=== PATIENT | female | born 1965 | race Caucasian/White ===

== ENCOUNTER 2021-03-19 15:11 | Emergency (ER) | payer OTHER ==
[2021-03-19] MEDS ORDERED: traMADol 50 MG TAB PO STA (15:51)
[2021-03-19] MEDS ORDERED: SODIUM CHLORIDE 0.9% 1,000 ML IV STA ×2 (15:51→17:15)
--- NOTE | 2021-03-19 15:53 | ED ---
General Adult HPI - General Chief complaint: Fever Stated complaint: Fall Time Seen by Provider: 03/19/21 15:14 Source: patient, EMS Mode of arrival: EMS Limitations: no limitations - History of Present Illness Initial comments: 55-year-old female presents to the emergency department with a chief complaint of a fall. Patient reports she has developed a fever, intermittent over the last 5 days. She states she has been able to break it with [id number] antipyretics. During this period, she reports increased weakness with generalized myalgias. She reports over the last several days her knees are "buckling". States today she was attempting to walk to the store when a similar incident occurred. She denies any head injuries, blood thinners, chest pain or shortness of breath. Denies any vaginal urinary symptoms. Denies abdominal or back pain. - Related Data Home Medications Medication Instructions Recorded Confirmed Metoclopramide HCl [Reglan] 5 mg PO Q6H PRN 09/12/15 09/12/15 Omeprazole [PriLOSEC] 20 mg PO AC-BRKFST 09/12/15 09/12/15 buPROPion HCL [Wellbutrin] 150 mg PO DAILY 09/12/15 09/12/15 Previous Rx's Medication Instructions Recorded Acetaminophen-Codeine 300-30mg 1 tab PO Q4H PRN #20 tablet 09/12/15 [Tylenol w/codeine #3] Cephalexin [Keflex] 500 mg PO TID #28 cap 03/19/21 Allergies Allergy/AdvReac Type Severity Reaction Status Date / Time Penicillins Allergy Unknown Verified 03/19/21 15:20 Review of Systems ROS Statement: Those systems with pertinent positive or pertinent negative responses have been documented in the HPI. ROS Other: All systems not noted in ROS Statement are negative. Past Medical History Past Medical History: Asthma History of Any Multi-Drug Resistant Organisms: None Reported Past Surgical History: No Surgical Hx Reported Additional Past Surgical History / Comment(s): gastric bypass, eyes Past Psychological History: Depression Smoking Status: Never smoker Past Alcohol Use History: None Reported Past Drug Use History: None Reported General Exam Limitations: no limitations General appearance: alert, in no apparent distress, obese Head exam: Present: atraumatic, normocephalic, normal inspection Eye exam: Present: normal appearance, PERRL, EOMI Pupils: Present: normal accommodation ENT exam: Present: normal exam, normal oropharynx, mucous membranes dry, TM's normal bilaterally, normal external ear exam Neck exam: Present: normal inspection, full ROM. Absent: tenderness, lymphadenopathy Respiratory exam: Present: normal lung sounds bilaterally. Absent: respiratory distress, wheezes, rales, rhonchi, stridor, chest wall tenderness Cardiovascular Exam: Present: regular rate, normal rhythm, normal heart sounds. Absent: systolic murmur GI/Abdominal exam: Present: soft. Absent: distended, tenderness, guarding, josemanuel ound, rigid Extremities exam: Present: normal inspection, full ROM, tenderness (Bilateral knee tenderness), normal capillary refill, other (Palpable DP and PT bilaterally). Absent: pedal edema, joint swelling, calf tenderness Back exam: Present: normal inspection, full ROM. Absent: tenderness, CVA tenderness (R), CVA tenderness (L), muscle spasm, paraspinal tenderness, vertebral tenderness Neurological exam: Present: alert, oriented X3, normal gait Psychiatric exam: Present: normal affect, normal mood Skin exam: Present: warm, dry, intact, normal color Course Vital Signs 03/19/21 03/19/21 03/19/21 15:15 16:31 18:17 Temperature 99.0 F 97.9 F Pulse Rate 107 H 98 103 H Respiratory 18 18 20 Rate Blood Pressure 127/80 95/81 121/76 O2 Sat by Pulse 99 97 96 Oximetry EKG Findings - EKG Comments: EKG Findings:: Sinus rhythm with QT prolongation, nonspecific T waves in V4 through V6. Ventricular rate 96, IL 132, QRS 90, QTC 540. Medical Decision Making - Medical Decision Making 55-year-old female presents to the emergency department with a chief complaint of a fall. Physical examination is only remarkable for clinical signs of dehydration with dry mucous members. CBC and a markable. CMP reveals hypokalemia with a potassium of 3.0. Patient was given Cassidy Dur. Lactic acid 2.3, likely secondary to dehydration. UA shows elevated leukocyte esterase and white blood cells. Urine culture is pending. We'll start the patient 1 g of Rocephin and will discharge with Keflex. Patient was given 2 L of IV bolus fluids. On reevaluation, patient reports improvement in symptoms and feels comfortable going home. Strict return parameters were thoroughly discussed with patient is an attending agreeable. Case discussed with Dr. Wayne. - Lab Data Result diagrams: 03/19/21 16:01 03/19/21 16:01 Lab Results 03/19/21 03/19/21 03/19/21 Range/Units 16:01 16:01 16:01 WBC 5.9 (3.8-10.6) k/uL RBC 4.12 (3.80-5.40) m/uL Hgb 11.3 L (11.4-16.0) gm/dL Hct 35.8 (34.0-46.0) % MCV 86.9 (80.0-100.0) fL MCH 27.5 (25.0-35.0) pg MCHC 31.7 (31.0-37.0) g/dL RDW 16.4 H (11.5-15.5) % Plt Count 154 (150-450) k/uL MPV 8.2 Neutrophils % (Manual) 62 % Band Neuts % (Manual) 2 % Lymphocytes % (Manual) 19 % Monocytes % (Manual) 17 % Neutrophils # (Manual) 3.70 (1.3-7.7) k/uL Lymphocytes # (Manual) 1.12 (1.0-4.8) k/uL Monocytes # (Manual) 1.00 (0-1.0) k/uL Nucleated RBCs 0 (0-0) /100 WBC Manual Slide Review Performed Hypochromasia Moderate Anisocytosis Slight Sodium 135 L (137-145) mmol/L Potassium 3.0 L (3.5-5.1) mmol/L Chloride 102 (98-107) mmol/L Carbon Dioxide 22 (22-30) mmol/L Anion Gap 11 mmol/L BUN 13 (7-17) mg/dL Creatinine 0.80 (0.52-1.04) mg/dL Est GFR (CKD-EPI)AfAm >90 (>60 ml/min/1.73 sqM) Est GFR (CKD-EPI)NonAf 84 (>60 ml/min/1.73 sqM) Glucose 90 (74-99) mg/dL Lactic Ac Sepsis Rflx Plasma Lactic Acid David 2.3 H* (0.7-2.0) mmol/L Calcium 8.5 (8.4-10.2) mg/dL Total Bilirubin 0.3 (0.2-1.3) mg/dL AST 65 H (14-36) U/L ALT 32 (4-34) U/L Alkaline Phosphatase 155 H (38-126) U/L Total Protein 5.8 L (6.3-8.2) g/dL Albumin 2.9 L (3.5-5.0) g/dL Urine Color Urine Appearance (Clear) Urine pH (5.0-8.0) Ur Specific [place] (1.001-1.035) Urine Protein (Negative) Urine Glucose (UA) (Negative) Urine Ketones (Negative) Urine Blood (Negative) Urine Nitrite (Negative) Urine Bilirubin (Negative) Urine Urobilinogen (<2.0) mg/dL Ur Leukocyte Esterase (Negative) Urine RBC (0-5) /hpf Urine WBC (0-5) /hpf Ur Squamous Epith Cells (0-4) /hpf Hyaline Casts (0-2) /lpf Granular Casts (0) /lpf Urine Mucus (None) /hpf Urine HCG, Qual (Not Detectd) 03/19/21 03/19/21 03/19/21 Range/Units 16:25 17:25 17:25 WBC (3.8-10.6) k/uL RBC (3.80-5.40) m/uL Hgb (11.4-16.0) gm/dL Hct (34.0-46.0) % MCV (80.0-100.0) fL MCH (25.0-35.0) pg MCHC (31.0-37.0) g/dL RDW (11.5-15.5) % Plt Count (150-450) k/uL MPV Neutrophils % (Manual) % Band Neuts % (Manual) % Lymphocytes % (Manual) % Monocytes % (Manual) % Neutrophils # (Manual) (1.3-7.7) k/uL Lymphocytes # (Manual) (1.0-4.8) k/uL Monocytes # (Manual) (0-1.0) k/uL Nucleated RBCs (0-0) /100 WBC Manual Slide Review Hypochromasia Anisocytosis Sodium (137-145) mmol/L Potassium (3.5-5.1) mmol/L Chloride (98-107) mmol/L Carbon Dioxide (22-30) mmol/L Anion Gap mmol/L BUN (7-17) mg/dL Creatinine (0.52-1.04) mg/dL Est GFR (CKD-EPI)AfAm (>60 ml/min/1.73 sqM) Est GFR (CKD-EPI)NonAf (>60 ml/min/1.73 sqM) Glucose (74-99) mg/dL Lactic Ac Sepsis Rflx Y Plasma Lactic Acid David (0.7-2.0) mmol/L Calcium (8.4-10.2) mg/dL Total Bilirubin (0.2-1.3) mg/dL AST (14-36) U/L ALT (4-34) U/L Alkaline Phosphatase (38-126) U/L Total Protein (6.3-8.2) g/dL Albumin (3.5-5.0) g/dL Urine Color Yellow Urine Appearance Cloudy H (Clear) Urine pH 6.0 (5.0-8.0) Ur Specific [place] 1.016 (1.001-1.035) Urine Protein 1+ H (Negative) Urine Glucose (UA) Negative (Negative) Urine Ketones Negative (Negative) Urine Blood Small H (Negative) Urine Nitrite Negative (Negative) Urine Bilirubin Negative (Negative) Urine Urobilinogen <2.0 (<2.0) mg/dL Ur Leukocyte Esterase Moderate H (Negative) Urine RBC 12 H (0-5) /hpf Urine WBC 43 H (0-5) /hpf Ur Squamous Epith Cells <1 (0-4) /hpf Hyaline Casts 60 H (0-2) /lpf Granular Casts 1 (0) /lpf Urine Mucus Rare H (None) /hpf Urine HCG, Qual Not Detected (Not Detectd) Disposition Clinical Impression: Urinary tract infection Disposition: HOME SELF-CARE Condition: Stable Instructions (If sedation given, give patient instructions): Urinary Tract Infection in Women (DC) Additional Instructions: Take prescribed medication as directed. Follow up with her primary care physician. Return to emergency department if symptoms worsen. Prescriptions: Cephalexin [Keflex] 500 mg PO TID #28 cap Is patient prescribed a controlled substance at d/c from ED?: No Referrals: Nonstaff,Physician [Primary Care Provider] - 1-2 days Time of Disposition: 18:14
[2021-03-19 16:15] LABS: Anisocytosis Slight; HCT 35.8 % (34.0-46.0); HGB 11.3 gm/dL (11.4-16.0); Hypochromasia Moderate; MCH 27.5 pg (25.0-35.0); MCHC 31.7 g/dL (31.0-37.0); MCV 86.9 fL (80.0-100.0); Mean Platelet Volume 8.2; Platelet Count 154 k/uL (150-450); RBC 4.12 m/uL (3.80-5.40); RDW 16.4 % (11.5-15.5); WBC 5.9 k/uL (3.8-10.6)
--- NOTE | 2021-03-19 16:21 | XR ---
EXAMINATION TYPE: XR chest 2V DATE OF EXAM: 03/19/2021 COMPARISON: NONE HISTORY: Shortness of breath TECHNIQUE: Frontal and lateral views of the chest are obtained. FINDINGS: Scattered senescent parenchymal changes noted. Hyperinflation compatible with COPD. No evidence for infiltrate. No evidence for atelectasis. Cardiomegaly. Mediastinal structures are stable and grossly unremarkable. No evidence for hilar prominence. Degenerative changes dorsal spine. IMPRESSION: 1. No evidence for acute pulmonary disease.
--- NOTE | 2021-03-19 16:22 | XR ---
EXAMINATION TYPE: XR knee complete bilateral DATE OF EXAM: 03/19/2021 CLINICAL HISTORY: pain TECHNIQUE: Three views of the bilateral knees are obtained. COMPARISON: None. FINDINGS: There is no acute fracture/dislocation. The tri-compartment joint spaces appear moderatel y narrowed bilaterally. The overlying soft tissue appears unremarkable. IMPRESSION: There is no acute fracture or dislocation.ICD 10 NO FRACTURE, INITIAL EVALUATION
[2021-03-19 16:24] LABS: ALT 32 U/L (4-34); AST 65 U/L (14-36); African American GFR (CKD) >90 (>60 ml/min/1.73 sqM); Albumin 2.9 g/dL (3.5-5.0); Alkaline Phosphatase 155 U/L (38-126); Anion Gap 11 mmol/L; Blood Urea Nitrogen 13 mg/dL (7-17); Calcium 8.5 mg/dL (8.4-10.2); Carbon Dioxide 22 mmol/L (22-30); Chloride 102 mmol/L (98-107); Glucose 90 mg/dL (74-99); Non-African American GFR(CKD) 84 (>60 ml/min/1.73 sqM); Sodium 135 mmol/L (137-145); Total Bilirubin 0.3 mg/dL (0.2-1.3); Total Protein 5.8 g/dL (6.3-8.2)
[2021-03-19] MEDS ORDERED: POTASSIUM CHLORIDE ER 20 MEQ TAB.ER PO STA (16:30)
[2021-03-19 16:44] LABS: Band Neutrophils % 2 %; Lymphocytes # (M) 1.12 k/uL (1.0-4.8); Neutrophils % (M) 62 %; Nucleated Red Blood Cells 0 /100 WBC (0-0); Total Cells Counted 100
[2021-03-19] MEDS ORDERED: ACETAMINOPHEN TAB 325 MG TAB PO STA (17:15)
[2021-03-19 17:43] LABS: Appearance,Urine Cloudy (Clear); Bilirubin,Urine Negative (Negative); Blood,Urine Small (Negative); Color,Urine Yellow; Glucose,Urine (UA) Negative (Negative); Granular Casts,Urine 1 /lpf (0); Hyaline Casts,Urine 60 /lpf (0-2); Ketones,Urine Negative (Negative); Leukocyte Esterase,Urine Moderate (Negative); Mucus,Urine Rare /hpf; Nitrite,Urine Negative (Negative); Protein,Urine 1+ (Negative); RBC,Urine 12 /hpf (0-5); Specific Gravity,Urine 1.016 (1.001-1.035); Squamous Epithelial Cell,Urine <1 /hpf (0-4); Urobilinogen,Urine <2.0 mg/dL (<2.0); WBC,Urine 43 /hpf (0-5)
[2021-03-19] MEDS ORDERED: cefTRIAXone IN SWFI 1,000 MG/10 ML SYRINGE IVP STA (18:10)
[2021-03-19 18:20] VITALS: BP 121/76; PULSE 103; RESP 20; TEMP 97.9
== END 2021-03-19 19:10 | disposition home or self-care (01) ==
LOC: EC 15:11
DX: N39.0 Urinary tract infection, site not specified (principal); M25.561 Pain in right knee; M25.562 Pain in left knee; E87.6 Hypokalemia; J45.909 Unspecified asthma, uncomplicated; F32.9 Major depressive disorder, single episode, unspecified; E66.9 Obesity, unspecified; Z79.899 Other long term (current) drug therapy; Z88.0 Allergy status to penicillin; Z98.84 Bariatric surgery status; W18.30XA Fall on same level, unspecified, initial encounter
CPT/HCPCS: 36415; 93005; 80053; 83605; 85025; 81001; 81025; 87040; 87086; 73562; 71046; 96374; 96361 ×2; 99285; J0696

== ENCOUNTER 2021-06-21 20:13 | Emergency (ER) | payer OTHER ==
[2021-06-21 20:29] VITALS: RESP 20
[2021-06-21] MEDS ORDERED: ACETAMINOPHEN TAB 500 MG TAB PO STA (20:35)
[2021-06-21] MEDS ORDERED: IBUPROFEN 600 MG TAB PO STA (20:35)
[2021-06-21] MEDS ORDERED: SODIUM CHLORIDE 0.9% 1,000 ML IV ONE (21:46)
--- NOTE | 2021-06-21 22:11 | ED ---
URI HPI - General Chief Complaint: Upper Respiratory Infection Stated Complaint: MICHAEL,Fever Time Seen by Provider: 06/21/21 20:35 Source: patient, EMS, RN notes reviewed Mode of arrival: EMS Limitations: no limitations - History of Present Illness Initial Comments: 55-year-old female presents emergency Department with chief complaint of fever or chills bodyaches cough congestion. Symptoms started this morning. Patient states she had COVID-19 in December. Denies any sick contacts denies any chest pain or shortness breath patient has slight nausea without vomiting diarrhea constipation no other complaints. - Related Data Home Medications Medication Instructions Recorded Confirmed Albuterol Sulfate [Ventolin HFA] 2 puff INHALATION RT-Q4H PRN 06/21/21 06/21/21 Apixaban [Eliquis] 5 mg PO BID 06/21/21 06/21/21 Bisoprolol-Hctz 5-6.25 mg [Ziac 1 tab PO DAILY 06/21/21 06/21/21 5-6.25 MG] Cholecalciferol [Vitamin D3 (25 50 mcg PO DAILY 06/21/21 06/21/21 Mcg = 1000 Iu)] Diclofenac Sodium [Voltaren] 75 mg PO Q12H PRN 06/21/21 06/21/21 Gabapentin [Neurontin] 100 mg PO Q6H PRN 06/21/21 06/21/21 HYDROcodone/APAP 7.5-325MG [Guy 1 tab PO HS PRN 06/21/21 06/21/21 7.5-325] Omeprazole 40 mg PO DAILY 06/21/21 06/21/21 Ondansetron HCl [Zofran] 4 mg PO Q6H PRN 06/21/21 06/21/21 Oxybutynin Chloride [Ditropan XL] 10 mg PO DAILY 06/21/21 06/21/21 Sertraline [Zoloft] 200 mg PO DAILY 06/21/21 06/21/21 predniSONE 10 mg PO BID 06/21/21 06/21/21 traZODone HCL [Desyrel] 100 mg PO Q12H PRN 06/21/21 06/21/21 Previous Rx's Medication Instructions Recorded Azithromycin [Zithromax] 500 mg PO DAILY #5 tab 06/21/21 Allergies Allergy/AdvReac Type Severity Reaction Status Date / Time No Known Allergies Allergy Verified 06/21/21 21:49 Review of Systems ROS Statement: Those systems with pertinent positive or pertinent negative responses have been documented in the HPI. ROS Other: All systems not noted in ROS Statement are negative. Past Medical History Past Medical History: Asthma History of Any Multi-Drug Resistant Organisms: None Reported Past Surgical History: No Surgical Hx Reported Additional Past Surgical History / Comment(s): gastric bypass, eyes Past Psychological History: Depression Smoking Status: Never smoker Past Alcohol Use History: None Reported Past Drug Use History: None Reported General Exam Limitations: no limitations General appearance: alert, in no apparent distress Head exam: Present: atraumatic, normocephalic, normal inspection Eye exam: Present: normal appearance, PERRL, EOMI. Absent: scleral icterus, conjunctival injection, periorbital swelling ENT exam: Present: normal exam, normal oropharynx, mucous membranes moist Neck exam: Present: normal inspection, full ROM. Absent: tenderness, meningismus, lymphadenopathy Respiratory exam: Present: normal lung sounds bilaterally. Absent: respiratory distress, wheezes, rales, rhonchi, stridor Cardiovascular Exam: Present: normal rhythm, tachycardia, normal heart sounds. Absent: systolic murmur, diastolic murmur, rubs, gallop, clicks GI/Abdominal exam: Present: soft, normal bowel sounds. Absent: distended, tenderness, guarding, rebound, rigid Course Vital Signs 06/21/21 06/21/21 06/21/21 20:25 22:13 22:50 Temperature 102.3 F H 102.3 F H 101.7 F H Pulse Rate 118 H 112 H Respiratory 20 20 Rate Blood Pressure 122/85 116/77 O2 Sat by Pulse 97 95 Oximetry Medical Decision Making - Medical Decision Making Chest x-ray shows evidence of pneumonia. Patient's vitals are stable. HEENT febrile which was treated. Patient discharged after Rocephin, azithromycin. - Lab Data Result diagrams: 06/21/21 21:56 06/21/21 21:56 Lab Results 06/21/21 06/21/21 06/21/21 Range/Units 20:48 21:56 21:56 WBC 14.9 H (3.8-10.6) k/uL RBC 3.98 (3.80-5.40) m/uL Hgb 10.5 L (11.4-16.0) gm/dL Hct 34.1 (34.0-46.0) % MCV 85.6 (80.0-100.0) fL MCH 26.4 (25.0-35.0) pg MCHC 30.8 L (31.0-37.0) g/dL RDW 15.9 H (11.5-15.5) % Plt Count 276 (150-450) k/uL MPV 7.3 Neutrophils % 91 % Lymphocytes % 3 % Monocytes % 4 % Eosinophils % 1 % Basophils % 0 % Neutrophils # 13.5 H (1.3-7.7) k/uL Lymphocytes # 0.5 L (1.0-4.8) k/uL Monocytes # 0.6 (0-1.0) k/uL Eosinophils # 0.1 (0-0.7) k/uL Basophils # 0.0 (0-0.2) k/uL Hypochromasia Slight Sodium 137 (137-145) mmol/L Potassium 3.9 (3.5-5.1) mmol/L Chloride 107 (98-107) mmol/L Carbon Dioxide 23 (22-30) mmol/L Anion Gap 7 mmol/L BUN 11 (7-17) mg/dL Creatinine 0.58 (0.52-1.04) mg/dL Est GFR (CKD-EPI)AfAm >90 (>60 ml/min/1.73 sqM) Est GFR (CKD-EPI)NonAf >90 (>60 ml/min/1.73 sqM) Glucose 117 H (74-99) mg/dL Plasma Lactic Acid David (0.7-2.0) mmol/L Calcium 8.8 (8.4-10.2) mg/dL Total Bilirubin 0.5 (0.2-1.3) mg/dL AST 22 (14-36) U/L ALT 12 (4-34) U/L Alkaline Phosphatase 71 (38-126) U/L Total Protein 5.8 L (6.3-8.2) g/dL Albumin 3.3 L (3.5-5.0) g/dL Urine Color Urine Appearance (Clear) Urine pH (5.0-8.0) Ur Specific [place] (1.001-1.035) Urine Protein (Negative) Urine Glucose (UA) (Negative) Urine Ketones (Negative) Urine Blood (Negative) Urine Nitrite (Negative) Urine Bilirubin (Negative) Urine Urobilinogen (<2.0) mg/dL Ur Leukocyte Esterase (Negative) Urine RBC (0-5) /hpf Urine WBC (0-5) /hpf Ur Squamous Epith Cells (0-4) /hpf Urine Bacteria (None) /hpf Urine Mucus (None) /hpf Coronavirus (PCR) Not Detected (Not Detectd) Influenza Type A RNA (Not Detectd) Influenza Type B (PCR) (Not Detectd) 06/21/21 06/21/21 06/21/21 Range/Units 21:56 21:56 21:56 WBC (3.8-10.6) k/uL RBC (3.80-5.40) m/uL Hgb (11.4-16.0) gm/dL Hct (34.0-46.0) % MCV (80.0-100.0) fL MCH (25.0-35.0) pg MCHC (31.0-37.0) g/dL RDW (11.5-15.5) % Plt Count (150-450) k/uL MPV Neutrophils % % Lymphocytes % % Monocytes % % Eosinophils % % Basophils % % Neutrophils # (1.3-7.7) k/uL Lymphocytes # (1.0-4.8) k/uL Monocytes # (0-1.0) k/uL Eosinophils # (0-0.7) k/uL Basophils # (0-0.2) k/uL Hypochromasia Sodium (137-145) mmol/L Potassium (3.5-5.1) mmol/L Chloride (98-107) mmol/L Carbon Dioxide (22-30) mmol/L Anion Gap mmol/L BUN (7-17) mg/dL Creatinine (0.52-1.04) mg/dL Est GFR (CKD-EPI)AfAm (>60 ml/min/1.73 sqM) Est GFR (CKD-EPI)NonAf (>60 ml/min/1.73 sqM) Glucose (74-99) mg/dL Plasma Lactic Acid David 1.6 (0.7-2.0) mmol/L Calcium (8.4-10.2) mg/dL Total Bilirubin (0.2-1.3) mg/dL AST (14-36) U/L ALT (4-34) U/L Alkaline Phosphatase (38-126) U/L Total Protein (6.3-8.2) g/dL Albumin (3.5-5.0) g/dL Urine Color Yellow Urine Appearance Clear (Clear) Urine pH 5.5 (5.0-8.0) Ur Specific [place] 1.025 (1.001-1.035) Urine Protein Trace H (Negative) Urine Glucose (UA) Negative (Negative) Urine Ketones Trace H (Negative) Urine Blood Negative (Negative) Urine Nitrite Negative (Negative) Urine Bilirubin Negative (Negative) Urine Urobilinogen <2.0 (<2.0) mg/dL Ur Leukocyte Esterase Small H (Negative) Urine RBC 1 (0-5) /hpf Urine WBC 8 H (0-5) /hpf Ur Squamous Epith Cells 1 (0-4) /hpf Urine Bacteria Occasional H (None) /hpf Urine Mucus Few H (None) /hpf Coronavirus (PCR) (Not Detectd) Influenza Type A RNA Not Detected (Not Detectd) Influenza Type B (PCR) Not Detected (Not Detectd) Disposition Clinical Impression: Pneumonia Disposition: HOME SELF-CARE Condition: Stable Instructions (If sedation given, give patient instructions): Pneumonia (ED) Additional Instructions: Please return to the Emergency Department if symptoms worsen or any other concerns. Prescriptions: Azithromycin [Zithromax] 500 mg PO DAILY #5 tab Is patient prescribed a controlled substance at d/c from ED?: No Referrals: Nonstaff,Physician [Primary Care Provider] - 1-2 days Time of Disposition: 23:07
[2021-06-21 22:25] LABS: Basophils % (A) 0 %; Eosinophils # (A) 0.1 k/uL (0-0.7); Eosinophils % (A) 1 %; HCT 34.1 % (34.0-46.0); HGB 10.5 gm/dL (11.4-16.0); Hypochromasia Slight; Lymphocytes # (A) 0.5 k/uL (1.0-4.8); Lymphocytes % (A) 3 %; MCH 26.4 pg (25.0-35.0); MCHC 30.8 g/dL (31.0-37.0); MCV 85.6 fL (80.0-100.0); Mean Platelet Volume 7.3; Monocytes # (A) 0.6 k/uL (0-1.0); Monocytes % (A) 4 %; Neutrophils # (A) 13.5 k/uL (1.3-7.7); Neutrophils % (A) 91 %; Platelet Count 276 k/uL (150-450); RBC 3.98 m/uL (3.80-5.40); RDW 15.9 % (11.5-15.5); WBC 14.9 k/uL (3.8-10.6)
[2021-06-21 22:38] LABS: Appearance,Urine Clear (Clear); Bacteria,Urine Occasional /hpf; Bilirubin,Urine Negative (Negative); Blood,Urine Negative (Negative); Color,Urine Yellow; Glucose,Urine (UA) Negative (Negative); Ketones,Urine Trace (Negative); Leukocyte Esterase,Urine Small (Negative); Mucus,Urine Few /hpf; Nitrite,Urine Negative (Negative); PH, Urine 5.5 (5.0-8.0); Protein,Urine Trace (Negative); RBC,Urine 1 /hpf (0-5); Specific Gravity,Urine 1.025 (1.001-1.035); Squamous Epithelial Cell,Urine 1 /hpf (0-4); Urobilinogen,Urine <2.0 mg/dL (<2.0); WBC,Urine 8 /hpf (0-5)
[2021-06-21 22:42] LABS: ALT 12 U/L (4-34); AST 22 U/L (14-36); African American GFR (CKD) >90 (>60 ml/min/1.73 sqM); Albumin 3.3 g/dL (3.5-5.0); Alkaline Phosphatase 71 U/L (38-126); Anion Gap 7 mmol/L; Blood Urea Nitrogen 11 mg/dL (7-17); Calcium 8.8 mg/dL (8.4-10.2); Carbon Dioxide 23 mmol/L (22-30); Chloride 107 mmol/L (98-107); Glucose 117 mg/dL (74-99); Non-African American GFR(CKD) >90 (>60 ml/min/1.73 sqM); Potassium 3.9 mmol/L (3.5-5.1); Sodium 137 mmol/L (137-145); Total Bilirubin 0.5 mg/dL (0.2-1.3); Total Protein 5.8 g/dL (6.3-8.2)
--- NOTE | 2021-06-21 22:48 | XR ---
EXAMINATION TYPE: XR chest 2V DATE OF EXAM: 06/21/2021 COMPARISON: 03/19/2021 HISTORY: Fever Cough TECHNIQUE: 2 views FINDINGS: Heart and mediastinum are normal. There is some patchy predominantly interstitial infiltrat e in the left lung. The right lung is fairly clear. There is no heart failure. Heart size is within n ormal limits. There is no pleural effusion. IMPRESSION: There is some patchy pneumonia in the left upper lobe and left lower lobe that appears ne w compared to old exam. No heart failure.
[2021-06-21] MEDS ORDERED: AZITHROMYCIN 250 MG TAB PO STA (23:05)
[2021-06-21] MEDS ORDERED: cefTRIAXone IN SWFI 1,000 MG/10 ML SYRINGE IVP STA (23:05)
[2021-06-21] MEDS ORDERED: diphenhydrAMINE 50 MG/ML 1 ML VIAL IVP STA (23:08)
[2021-06-21] MEDS ORDERED: KETOROLAC 15 MG/ML 1 ML VIAL IVP STA (23:08)
[2021-06-21 23:38] VITALS: BP 102/68; PULSE 92; TEMP 100.5
== END 2021-06-21 23:38 | disposition home or self-care (01) ==
LOC: EC 20:13
DX: J18.9 Pneumonia, unspecified organism (principal); Z20.822 Contact with and (suspected) exposure to COVID-19; Z79.01 Long term (current) use of anticoagulants; J45.909 Unspecified asthma, uncomplicated; F32.9 Major depressive disorder, single episode, unspecified
CPT/HCPCS: 99284; 96374; 96375 ×2; 96361; 36415; 80053; 83605; 85025; 81001; 87502; 87635; 71046; J1200; J0696; J1885